=== PATIENT | male | born 1945 | race Caucasian/White ===

== ENCOUNTER 2023-06-05 14:23 | Emergency (ER) | payer MEDICARE ==
[2023-06-05] MEDS ORDERED: Acetaminophen/HYDROcodone 325-5 MG Tab PO ONE (15:00)
== END 2023-06-05 16:17 | disposition home or self-care (01) ==
LOC: JP.ED 14:23 → MERGE 14:23 → JP.ED 16:17
DX: M25.561 Pain in right knee (principal); I48.20 Chronic atrial fibrillation, unspecified; Z79.01 Long term (current) use of anticoagulants
CPT/HCPCS: 99283; A9270